=== PATIENT | female | born 1985 | race Caucasian/White ===

== ENCOUNTER 2018-12-13 08:48 | Inpatient (IN) | payer MEDICAID ==
[2018-12-13] MEDS ORDERED: LACTATED RINGER'S 1,000 ML IV (09:43)
[2018-12-13] MEDS ORDERED: MISOPROSTOL 200 MCG TAB PR (10:00)
[2018-12-13] MEDS ORDERED: CARBOPROST 250 MCG INJ IM (10:00)
[2018-12-13] MEDS ORDERED: LIDOCAINE 1% (MPF) 30 ML INJ INJ (10:00)
[2018-12-13] MEDS ORDERED: OXYTOCIN 30 UNITS/LR 500 ML IV ×2 (10:00)
[2018-12-13] MEDS ORDERED: METHYLERGONOVINE 0.2 MG INJ IM (10:00)
[2018-12-13] MEDS ORDERED: OXYCODONE/ASPIRIN (4.88/325) TAB PO (10:00)
[2018-12-13] MEDS: AMPICILLIN 2 GM/NS (PMX) 100 ML IV (11:00)
[2018-12-13] MEDS: LACTATED RINGER'S 1,000 ML IV ×2 (11:02→20:23)
[2018-12-13 11:08] LABS: ADD MAN DIFF? NO
[2018-12-13 11:17] LABS: WHITE BLOOD COUNT 8.9 10^3/ul (4.8-10.8)
[2018-12-13 11:17] LABS: BASOPHILS % 0.2 % (0.0-2.0); EOSINOPHILS # 0.1 10^3/ul (0.0-0.5); EOSINOPHILS % 0.9 % (0.0-7.0); HEMOGLOBIN 11.8 g/dl (12.0-16.0); LYMPHOCYTES # 1.6 10^3/ul (0.8-2.9); LYMPHOCYTES % 18.2 % (15.0-51.0); MEAN CORPUSCULAR HEMOGLOBIN 30.6 pg (29.0-33.0); MEAN CORPUSCULAR HGB CONC 33.7 g/dl (32.0-37.0); MEAN CORPUSCULAR VOLUME 90.9 fl (82.0-101.0); MEAN PLATELET VOLUME 10.5 fl (7.4-10.4); MONOCYTE # 0.9 10^3/ul (0.3-0.9); MONOCYTES % 9.6 % (0.0-11.0); NEUTROPHIL # 6.3 10^3/ul (1.6-7.5); NEUTROPHILS % 70.7 % (39.0-77.0); PLATELET COUNT 309 10^3/UL (140-415); RED BLOOD COUNT 3.85 10^6/ul (4.20-5.40); RED CELL DISTRIBUTION WIDTH 14.2 % (11.5-14.5)
[2018-12-13 11:36] LABS: INR 0.81; PARTIAL THROMBOPLASTIN TIME 28.6 Sec (23.0-35.0); PROTIME 11.3 Sec (11.9-14.9); PT RATIO 0.9
[2018-12-13] MEDS: MISOPROSTOL 50 MCG CAPSULE PO ×4 (12:00→21:00)
[2018-12-13 12:09] LABS: HEPATITIS B SURFACE ANTIGEN NEGATIVE (NEGATIVE)
[2018-12-13] MEDS: AMPICILLIN 1 GM/NS (PMX) 50 ML IV ×3 (14:55→23:16)
[2018-12-13 15:51] LABS: RAPID PLASMA REAGIN NONREACTIVE (NR)
[2018-12-13] MEDS ORDERED: MINERAL OIL LIGHT 10 ML VIAL TOP (16:00)
[2018-12-14] MEDS: LACTATED RINGER'S 1,000 ML IV ×2 (00:39→10:15)
[2018-12-14] MEDS: AMPICILLIN 1 GM/NS (PMX) 50 ML IV ×4 (03:59→16:12)
[2018-12-14] MEDS: MISOPROSTOL 50 MCG CAPSULE PO ×2 (06:21→10:14)
[2018-12-14] MEDS ORDERED: CARBOPROST 250 MCG INJ IM ×3 (13:00→19:00)
[2018-12-14] MEDS ORDERED: OXYTOCIN 30 UNITS/LR 500 ML IV ×7 (13:00→19:00)
[2018-12-14] MEDS ORDERED: METHYLERGONOVINE 0.2 MG INJ IM ×3 (13:00→19:00)
[2018-12-14] MEDS ORDERED: LIDOCAINE 1% (MPF) 30 ML INJ INJ ×2 (13:00→18:00)
[2018-12-14] MEDS ORDERED: MISOPROSTOL 200 MCG TAB PR ×3 (13:00→19:00)
[2018-12-14] MEDS: BUTORPHANOL 2 MG INJ IV ×2 (13:38→16:12)
[2018-12-14] MEDS: OXYTOCIN 30 UNITS/LR 500 ML IV ×2 (14:38→19:13)
[2018-12-14] MEDS ORDERED: MAGNESIUM HYDROXIDE 30ML CUP PO (19:00)
[2018-12-14] MEDS ORDERED: DIBUCAINE 1% 30 GM OINT TOP (19:00)
[2018-12-14] MEDS ORDERED: ONDANSETRON 4 MG TAB PO (19:00)
[2018-12-14] MEDS ORDERED: ONDANSETRON 4 MG INJ IV (19:00)
[2018-12-14] MEDS ORDERED: HYDROCODONE/APAP (5/325) TAB PO ×2 (19:00)
[2018-12-14] MEDS ORDERED: ACETAMINOPHEN 325 MG TAB PO ×2 (19:00)
[2018-12-14] MEDS ORDERED: DIPHENHYDRAMINE 50 MG INJ IV (19:00)
[2018-12-14] MEDS ORDERED: DIPHENHYDRAMINE 25 MG CAP PO (19:00)
[2018-12-14] MEDS: IBUPROFEN 600 MG TAB PO (19:02)
[2018-12-15] MEDS: BENZOCAINE 20% 56 ML SPRAY TOP ×2 (01:11→22:04)
[2018-12-15] MEDS: LANOLIN HPA 1 PKT TOP ×2 (01:11→22:04)
[2018-12-15] MEDS: AMPICILLIN 1 GM/NS (PMX) 50 ML IV ×4 (01:14→06:00)
[2018-12-15] MEDS: LACTATED RINGER'S 1,000 ML IV ×2 (01:14→01:43)
[2018-12-15] MEDS: LACTATED RINGER'S 1,000 ML IV* ×2 (01:15→02:53)
[2018-12-15] MEDS: OXYTOCIN 30 UNITS/LR 500 ML IV (01:53)
[2018-12-15] MEDS: IBUPROFEN 800 MG TAB PO ×5 (06:45→23:43)
[2018-12-15 06:47] LABS: ADD MAN DIFF? NO
[2018-12-15 06:50] LABS: WHITE BLOOD COUNT 15.7 10^3/ul (4.8-10.8)
[2018-12-15 06:50] LABS: BASOPHILS % 0.3 % (0.0-2.0); EOSINOPHILS # 0.1 10^3/ul (0.0-0.5); EOSINOPHILS % 0.5 % (0.0-7.0); HEMATOCRIT 37.5 % (37.0-47.0); HEMOGLOBIN 12.2 g/dl (12.0-16.0); LYMPHOCYTES # 1.9 10^3/ul (0.8-2.9); LYMPHOCYTES % 12.3 % (15.0-51.0); MEAN CORPUSCULAR HEMOGLOBIN 29.7 pg (29.0-33.0); MEAN CORPUSCULAR HGB CONC 32.5 g/dl (32.0-37.0); MEAN CORPUSCULAR VOLUME 91.2 fl (82.0-101.0); MONOCYTES % 6.2 % (0.0-11.0); NEUTROPHIL # 12.6 10^3/ul (1.6-7.5); NEUTROPHILS % 80.1 % (39.0-77.0); PLATELET COUNT 320 10^3/UL (140-415); RED BLOOD COUNT 4.11 10^6/ul (4.20-5.40); RED CELL DISTRIBUTION WIDTH 14.2 % (11.5-14.5)
[2018-12-15] MEDS: SENNA/DOCUSATE NA (8.6MG/50MG) TAB PO (22:04)
[2018-12-16] MEDS: IBUPROFEN 800 MG TAB PO ×2 (06:30→11:37)
[2018-12-16 06:37] LABS: ADD MAN DIFF? NO
[2018-12-16 06:44] LABS: BASOPHIL # 0.1 10^3/ul (0.0-0.1); BASOPHILS % 0.5 % (0.0-2.0); EOSINOPHILS # 0.2 10^3/ul (0.0-0.5); EOSINOPHILS % 2.1 % (0.0-7.0); HEMATOCRIT 34.2 % (37.0-47.0); HEMOGLOBIN 11.3 g/dl (12.0-16.0); LYMPHOCYTES # 2.6 10^3/ul (0.8-2.9); LYMPHOCYTES % 26.9 % (15.0-51.0); MEAN CORPUSCULAR HEMOGLOBIN 30.3 pg (29.0-33.0); MEAN CORPUSCULAR VOLUME 91.7 fl (82.0-101.0); MEAN PLATELET VOLUME 10.1 fl (7.4-10.4); MONOCYTE # 0.7 10^3/ul (0.3-0.9); MONOCYTES % 7.2 % (0.0-11.0); NEUTROPHIL # 5.9 10^3/ul (1.6-7.5); NEUTROPHILS % 62.8 % (39.0-77.0); PLATELET COUNT 326 10^3/UL (140-415); RED BLOOD COUNT 3.73 10^6/ul (4.20-5.40); RED CELL DISTRIBUTION WIDTH 14.2 % (11.5-14.5)
[2018-12-16 06:44] LABS: WHITE BLOOD COUNT 9.5 10^3/ul (4.8-10.8)
[2018-12-16] MEDS ORDERED: MEASLES,MUMPS,RUBELLA VACCINE INJ SC* (09:00)
[2018-12-16] MEDS ORDERED: DIPHTH/TET/ACEL PERTUSS (ADULT) 0.5 ML VIAL IM* (09:00)
[2018-12-16] MEDS ORDERED: VARICELLA VACCINE LIVE/PF 1,350 UNIT/0.5 ML ML SC* (09:00)
== END 2018-12-16 14:45 | disposition home or self-care (01) | DRG 807 ==
LOC: PP1 12-14 20:47 → L-D 08:48
PROVIDERS: Obstetrics & Gynecology
PROC: 10E0XZZ Delivery of Products of Conception, External Approach (ICD-10-PCS; principal; 2018-12-14)
DX: O62.3 Precipitate labor (principal); Z37.0 Single live birth; O99.824 Streptococcus B carrier state complicating childbirth; Z3A.40 40 weeks gestation of pregnancy
CPT/HCPCS: 76815; 85025; 85610; 85730; 86592; 86850; 86900; 86901; 87340